=== PATIENT | female | born 1990 | race African-American/Black ===

== ENCOUNTER 2017-02-22 16:13 | Outpatient (CLI) | payer OTHER ==
[~2017-02-22] VITALS: Ht 160 cm; Wt 54.5 kg
[~2017-02-22 16:13] MED LIST: ENDOCET 5-3251 EACH PO; FLEXERIL5 MG PO; IBUPROFEN800 MG PO; LEVAQUIN750 MG PO; LIDOCAINE700 MG TD; MACROBID100 MG PO; MOTRIN400 MG PO; OXYCODONE HCL5 MG PO; PRENATAL VITAM1 EAC3 PO; XARELTO15 MG PO; XARELTO20 MG PO
[2017-02-22 16:26] VITALS: BP 127/76
[2017-02-22] MEDS ORDERED: LOVENOX40 MG/0.4 SC (17:34)
[2017-02-22] MEDS ORDERED: PRENATAL TABLE1 EAC3 PO (17:35)
[2017-02-22 17:51] LABS: EOSINOPHIL (%) 1.5 % (0-5); EOSINOPHIL COUNT 0.2 K/uL (0-0.3); HEMATOCRIT 30.1 % (36.0-46.0); IMMATURE GRANULOCYTE (%) 0.7 % (0.0-0.7); IMMATURE GRANULOCYTE COUNT 0.1 K/uL; INSTRUMENT ABS NEUTROPHIL CT 7.2 K/uL; LYMPHOCYTE COUNT 1.8 K/uL (1.0-2.8); MCH 29.2 PG (29.0-34.0); MCHC 33.6 G/DL (30.0-36.0); MEAN PLAT.VOLUME 9.3 uM^3 (9.5-12.4); MONOCYTE (%) 11.6 % (3-12); MONOCYTE COUNT 1.2 K/uL (0-0.8); NEUTROPHIL COUNT 7.2 K/uL (1.8-6.4); PLATELET COUNT 271 K/uL (156-360); RBC DIS.WIDTH-CV 12.5 % (11.8-14.6); RBC DIS.WIDTH-SD 39.9 % (39-53); RED BLOOD COUNT 3.46 M/uL (3.80-5.20); WHITE BLOOD COUNT 10.5 K/uL (4.1-10.2)
[2017-02-22 18:31] LABS: ADD MIUA? NO; BILIRUBIN NEGATIVE; BLOOD NEGATIVE; COLOR YELLOW ((YELLOW)); GLUCOSE (STRIP) NEGATIVE; KETONES 80; LEUKOCYTES NEGATIVE; NITRITE NEGATIVE; PROTEIN (STRIP) NEGATIVE; SPECIFIC GRAVITY 1.012 (1.000-1.030); UROBILINOGEN 0.2 MG/DL (0.2-1.0)
[2017-02-22 18:48] LABS: DRSB INTERNAL CONTROL PASS; PROBE CHECK PASS; SPECIMEN PROCESSING CONTROL PASS
[2017-02-22 19:11] VITALS: BP 117/59
[2017-02-22 20:27] LABS: AMPHETAMINE NEGATIVE (500 ng/mL); BARBITURATES NEGATIVE (200 ng/mL); BENZODIAZEPINES NEGATIVE (150 ng/mL); COCAINE NEGATIVE (150 ng/mL); INTERNAL CONTROLS VALID? YES; METHADONE NEGATIVE (200 ng/mL); METHAMPHETAMINE NEGATIVE (500 ng/mL); OPIATES (MORPHINE) NEGATIVE (100 ng/mL); OXYCODONE NEGATIVE (100 ng/mL); PHENCYCLIDINE NEGATIVE (25 ng/mL); PROPOXYPHENE NEGATIVE (300 ng/mL); THC CANNABINOIDS PRESUMPTIVE POSITIVE (50 ng/mL); TRICYCLIC ANTIDEPRESSANTS NEGATIVE (300 ng/mL)
[2017-02-22 20:28] LABS: ADD MEDTOX COMMENT Y
[2017-02-22 22:57] LABS: CANDIDA DNA PROBE NEGATIVE; GARDNERELLA DNA PROBE POSITIVE; INTERNAL CONTROL VALID? YES
== END 2017-02-22 20:22 | disposition home or self-care (01) ==
LOC: LDRP-OP → 2WEST 16:15 → LDRP-OP 05-04 10:21
PROVIDERS: Advanced Practice Midwife; Obstetrics & Gynecology
DX: O47.03 False labor before 37 completed weeks of gestation, third trimester (principal); Z3A.34 34 weeks gestation of pregnancy; O34.219 Maternal care for unspecified type scar from previous cesarean delivery; Z86.711 Personal history of pulmonary embolism; Z79.01 Long term (current) use of anticoagulants
CPT/HCPCS: 59025; 81003; 84999; 85025; 87086; 87480; 87510; 87653; 87660; G0378; J7120

== ENCOUNTER 2017-03-04 22:10 | Outpatient (CLI) | payer OTHER ==
[~2017-03-04] VITALS: Ht 162.6 cm; Wt 56.0 kg
[~2017-03-04 22:10] MED LIST changes: +LOVENOX40 MG/0.4 SC; +PRENATAL TABLE1 EAC3 PO
[2017-03-04 22:21] VITALS: BP 122/76
[2017-03-05 00:26] LABS: ADD MIUA? NO; BILIRUBIN NEGATIVE; BLOOD NEGATIVE; COLOR STRAW ((YELLOW)); GLUCOSE (STRIP) NEGATIVE; KETONES NEGATIVE; LEUKOCYTES NEGATIVE; NITRITE NEGATIVE; PROTEIN (STRIP) NEGATIVE; SPECIFIC GRAVITY 1.004 (1.000-1.030); UCUL ADDED? NO; UROBILINOGEN 0.2 MG/DL (0.2-1.0)
[2017-03-05 00:35] LABS: AMPHETAMINE NEGATIVE (500 ng/mL); BARBITURATES NEGATIVE (200 ng/mL); BENZODIAZEPINES NEGATIVE (150 ng/mL); COCAINE NEGATIVE (150 ng/mL); METHADONE NEGATIVE (200 ng/mL); METHAMPHETAMINE NEGATIVE (500 ng/mL); OPIATES (MORPHINE) NEGATIVE (100 ng/mL); OXYCODONE NEGATIVE (100 ng/mL); PHENCYCLIDINE NEGATIVE (25 ng/mL); PROPOXYPHENE NEGATIVE (300 ng/mL); THC CANNABINOIDS NEGATIVE (50 ng/mL); TRICYCLIC ANTIDEPRESSANTS NEGATIVE (300 ng/mL)
[2017-03-05 00:36] LABS: INTERNAL CONTROLS VALID? YES
[2017-03-05 00:54] VITALS: BP 126/78
[2017-03-05 06:18] VITALS: BP 120/70
[2017-03-05 07:38] VITALS: BP 119/75
== END 2017-03-05 09:30 | disposition home or self-care (01) ==
LOC: LDRP-OP 22:10 → 2WEST 22:11 → LDRP-OP 05-04 21:22
PROVIDERS: Advanced Practice Midwife
DX: O60.03 Preterm labor without delivery, third trimester (principal); Z3A.35 35 weeks gestation of pregnancy; O34.219 Maternal care for unspecified type scar from previous cesarean delivery; Z86.711 Personal history of pulmonary embolism; Z79.01 Long term (current) use of anticoagulants
CPT/HCPCS: 59025; 81003; 87653; G0378; J0702; J3105; J7120

== ENCOUNTER 2017-03-11 05:49 | Inpatient (IN) | payer OTHER ==
[~2017-03-11] VITALS: Ht 162.6 cm; Wt 54.4 kg
[2017-03-11 06:38] VITALS: BP 131/86
[2017-03-11 09:39] LABS: EOSINOPHIL COUNT 0.2 K/uL (0-0.3); HEMATOCRIT 31.4 % (36.0-46.0); IMMATURE GRANULOCYTE (%) 0.7 % (0.0-0.7); IMMATURE GRANULOCYTE COUNT 0.1 K/uL; INSTRUMENT ABS NEUTROPHIL CT 4.7 K/uL; LYMPHOCYTE COUNT 2.3 K/uL (1.0-2.8); MCH 27.8 PG (29.0-34.0); MCHC 32.8 G/DL (30.0-36.0); MCV 84.9 FL (83-99); MEAN PLAT.VOLUME 9.5 uM^3 (9.5-12.4); MONOCYTE (%) 12.2 % (3-12); NEUTROPHIL (%) 56.7 % (45-76); NEUTROPHIL COUNT 4.7 K/uL (1.8-6.4); PLATELET COUNT 316 K/uL (156-360); RBC DIS.WIDTH-CV 12.5 % (11.8-14.6); RBC DIS.WIDTH-SD 38.6 % (39-53); WHITE BLOOD COUNT 8.2 K/uL (4.1-10.2)
[2017-03-11 11:53] VITALS: BP 113/78
[2017-03-11 14:40] VITALS: BP 116/71
[2017-03-11 15:36] VITALS: BP 120/76
[2017-03-11 16:30] VITALS: BP 136/71
[2017-03-11 18:00] VITALS: BP 130/73
[2017-03-12 08:22] LABS: EOSINOPHIL (%) 0.5 % (0-5); EOSINOPHIL COUNT 0.1 K/uL (0-0.3); HEMATOCRIT 27.2 % (36.0-46.0); IMMATURE GRANULOCYTE (%) 0.5 % (0.0-0.7); IMMATURE GRANULOCYTE COUNT 0.1 K/uL; INSTRUMENT ABS NEUTROPHIL CT 10.1 K/uL; LYMPHOCYTE COUNT 2.6 K/uL (1.0-2.8); MCH 28.8 PG (29.0-34.0); MCHC 33.8 G/DL (30.0-36.0); MEAN PLAT.VOLUME 9.4 uM^3 (9.5-12.4); MONOCYTE (%) 11.4 % (3-12); MONOCYTE COUNT 1.7 K/uL (0-0.8); NEUTROPHIL (%) 69.6 % (45-76); NEUTROPHIL COUNT 10.1 K/uL (1.8-6.4); PLATELET COUNT 286 K/uL (156-360); RBC DIS.WIDTH-CV 12.4 % (11.8-14.6); RBC DIS.WIDTH-SD 38.3 % (39-53); WHITE BLOOD COUNT 14.6 K/uL (4.1-10.2)
[2017-03-13 07:45] VITALS: BP 103/53
[2017-03-13] MEDS ORDERED: DOCUSATE SODIU100 MG PO (11:21)
[2017-03-13] MEDS ORDERED: IBUPROFEN800 MG PO (11:21)
[2017-03-13] MEDS ORDERED: ENDOCET 5-3251 EACH PO (11:21)
[2017-03-13] MEDS ORDERED: LOVENOX40 MG/0.4 SC (11:21)
== END 2017-03-13 14:50 | disposition home or self-care (01) | DRG 765 ==
LOC: LDRP-OP 05:49 → 2WEST 05:50 → LDRP-OP 05-04 13:05
PROVIDERS: Obstetrics & Gynecology
DX: O34.211 Maternal care for low transverse scar from previous cesarean delivery (principal); O60.14X0 Preterm labor third trimester with preterm delivery third trimester, not applicable or unspecified; O99.89 Other specified diseases and conditions complicating pregnancy, childbirth and the puerperium; N73.6 Female pelvic peritoneal adhesions (postinfective); O99.324 Drug use complicating childbirth; F12.90 Cannabis use, unspecified, uncomplicated; O99.02 Anemia complicating childbirth; D50.9 Iron deficiency anemia, unspecified; Z86.711 Personal history of pulmonary embolism; Z79.01 Long term (current) use of anticoagulants; Z3A.36 36 weeks gestation of pregnancy; Z37.0 Single live birth
CPT/HCPCS: 85025; 86850; 86900; 86901; 87081; 88307; J0690; J1100; J1200; J1650; J1885; J2274; J2405; J7120

== ENCOUNTER 2017-07-02 02:38 | Day surgery (SDC) | payer OTHER ==
[~2017-07-02] VITALS: Ht 162.6 cm; Wt 50.6 kg
[~2017-07-02 02:38] MED LIST changes: +DOCUSATE SODIU100 MG PO
[2017-07-02 05:05] LABS: HEMATOCRIT 37.2 % (36.0-46.0); MCH 28.4 PG (29.0-34.0); MCHC 33.3 G/DL (30.0-36.0); MCV 85.3 FL (83-99); MEAN PLAT.VOLUME 8.7 uM^3 (9.5-12.4); PLATELET COUNT 306 K/uL (156-360); RBC DIS.WIDTH-SD 43.5 % (39-53); RED BLOOD COUNT 4.36 M/uL (3.80-5.20); WHITE BLOOD COUNT 5.5 K/uL (4.1-10.2)
[2017-07-02 05:13] LABS: CHLORIDE 111 mEq/L (99-109); POTASSIUM 3.8 mEq/L (3.7-5.4); SODIUM 143 mEq/L (136-147)
[2017-07-02 05:14] LABS: GLUCOSE 79 mg/dL (70-99)
[2017-07-02 05:16] LABS: ANION GAP 12 MEQ/L (2-14)
[2017-07-02 05:18] LABS: GFR ESTIMATE (CALCULATED) > 59 mL/min/
[2017-07-02 05:19] LABS: UREA NITROGEN (BUN) 9 mg/dL (9-23)
[2017-07-02] MEDS ORDERED: TYLENOL EXTRA500 MG PO (05:20)
[2017-07-02 05:26] LABS: QUANTITATIVE HCG < 4.0 MIU/ML
[2017-07-02 14:01] VITALS: BP 124/81
== END 2017-07-02 16:15 | disposition home or self-care (01) ==
LOC: EME 02:38 → SDC 10:17 → 2SOUTH 12:40 → ENRESERV 13:08 → 2EAST 13:31
PROVIDERS: Physician Assistant
PROC: 0PST34Z Reposition Right Finger Phalanx with Internal Fixation Device, Percutaneous Approach (ICD-10-PCS; principal; 2017-07-02)
DX: S62.616B Displaced fracture of proximal phalanx of right little finger, initial encounter for open fracture (principal); W23.0XXA Caught, crushed, jammed, or pinched between moving objects, initial encounter; Z86.711 Personal history of pulmonary embolism; Z79.01 Long term (current) use of anticoagulants
CPT/HCPCS: 73140; 76000; 80048; 84702; 85027; 99281; 99285; C1769; G0378; J0690; J1100; J1885; J2250; J2405; J3010; J7030; S0020

== ENCOUNTER 2017-10-10 20:48 | Emergency (ER) | payer OTHER ==
[~2017-10-10] VITALS: Ht 160 cm; Wt 44.1 kg
[~2017-10-10 20:48] MED LIST changes: +TYLENOL EXTRA500 MG PO
[2017-10-10 21:03] LABS: APPEARANCE SL.HAZY ((CLEAR)); BILIRUBIN NEGATIVE; BLOOD MODERATE; COLOR STRAW ((YELLOW)); GLUCOSE (STRIP) NEGATIVE; KETONES NEGATIVE; LEUKOCYTES TRACE; NITRITE NEGATIVE; PROTEIN (STRIP) NEGATIVE; SPECIFIC GRAVITY 1.002 (1.000-1.030); UROBILINOGEN 0.2 MG/DL (0.2-1.0)
[2017-10-10 21:07] LABS: BACTERIA RARE /HPF; EPITHELIAL CELLS 2+ /HPF; MUCUS TRACE /LPF; RED BLOOD CELLS 0-5 /HPF (0-5)
[2017-10-10 21:11] LABS: AMPHETAMINE NEGATIVE (500 ng/mL); BARBITURATES NEGATIVE (200 ng/mL); BENZODIAZEPINES NEGATIVE (150 ng/mL); BUPRENORPHINE NEGATIVE (10 ng/mL); COCAINE NEGATIVE (150 ng/mL); METHADONE NEGATIVE (200 ng/mL); METHAMPHETAMINE NEGATIVE (500 ng/mL); OPIATES (MORPHINE) NEGATIVE (100 ng/mL); OXYCODONE NEGATIVE (100 ng/mL); PHENCYCLIDINE NEGATIVE (25 ng/mL); PROPOXYPHENE NEGATIVE (300 ng/mL); THC CANNABINOIDS PRESUMPTIVE POSITIVE (50 ng/mL); TRICYCLIC ANTIDEPRESSANTS NEGATIVE (300 ng/mL)
[2017-10-10 21:46] LABS: HEMATOCRIT 43.5 % (36.0-46.0); HEMOGLOBIN 14.9 G/DL (11.9-15.5); MCH 30.5 PG (29.0-34.0); MCHC 34.3 G/DL (30.0-36.0); PLATELET COUNT 373 K/uL (156-360); RBC DIS.WIDTH-CV 14.4 % (11.8-14.6); RBC DIS.WIDTH-SD 46.5 % (39-53); RED BLOOD COUNT 4.89 M/uL (3.80-5.20); WHITE BLOOD COUNT 8.1 K/uL (4.1-10.2)
[2017-10-10 22:02] LABS: ALBUMIN 4.7 g/dL (3.2-4.8); CHLORIDE 111 mEq/L (99-109); POTASSIUM 4.1 mEq/L (3.7-5.4); SODIUM 145 mEq/L (136-147)
[2017-10-10 22:04] LABS: GLUCOSE 83 mg/dL (70-99); TOTAL PROTEIN 8.3 g/dL (6.4-8.3)
[2017-10-10 22:06] LABS: TOTAL BILIRUBIN 0.3 mg/dL (0.0-1.0)
[2017-10-10 22:07] LABS: SERUM ETHYL ALCOHOL 110 mg/dL
[2017-10-10 22:08] LABS: ALKALINE PHOSPHATASE 84 IU/L (3-129); CREATININE 0.8 mg/dL (0.6-1.3); GFR ESTIMATE (CALCULATED) > 59 mL/min/
[2017-10-10 22:09] LABS: AST (GOT) 21 IU/L (2-34); UREA NITROGEN (BUN) 7 mg/dL (9-23)
[2017-10-10 22:11] LABS: ALT (GPT) 18 IU/L (3-49)
[2017-10-10 22:19] LABS: QUANTITATIVE HCG < 4.0 MIU/ML
[2017-10-10 23:48] VITALS: BP 140/90
== END 2017-10-10 23:38 | disposition home or self-care (01) ==
LOC: EME 20:48
PROVIDERS: Emergency Medicine
DX: F32.9 Major depressive disorder, single episode, unspecified (principal); F10.129 Alcohol abuse with intoxication, unspecified; Y90.5 Blood alcohol level of 100-119 mg/100 ml; F43.21 Adjustment disorder with depressed mood; Z63.4 Disappearance and death of family member; Z86.711 Personal history of pulmonary embolism
CPT/HCPCS: 80053; 81003; 84702; 84999; 85027; 90837; 99281; 99285; G0480